=== PATIENT | female | born 1970 | race Caucasian/White ===

== ENCOUNTER → 2020-12-25 | Outpatient (CLI) | payer OTHER ==
--- NOTE | 2020-12-26 23:26 | RAD ---
DATE: 12/25/2020 EXAM: MAMMO RAEANN SCREENING BILATERAL HISTORY: Screening. New baseline COMPARISON: None available. New baseline exam. This study was interpreted with the benefit of Computerized Aided Detection (CAD). Breast Density: HETERO The breast parenchyma is heterogenously dense, which could reduce sensitivity of mammography. Breast parenchyma level C. FINDINGS: There are small nodular densities in the upper outer right breast at approximately 2:00 3-4 centers posterior to the nipple. There is a small nodular density in the left breast at 2:30 3:00, 3 cm posterior to the nipple. There is a questionable area of architectural distortion in the left breast 7 to 8 cm posterior to the nipple along the posterior nipple line, seen on CC view. No suspicious calcifications in either breast. IMPRESSION: Bilateral nodular densities in the outer breasts. Asymmetry in the left breast with possible architectural distortion. Recommend spot compression views and possible ultrasound if needed. BI-RADS CATEGORY: 0 INCOMPLETE: NEEDS ADDITIONAL IMAGING EVALUATION AND/OR PRIOR MAMMOGRAMS FOR COMPARISON. RECOMMENDED FOLLOW-UP: ADD ADDITIONAL IMAGING PQRS compliance statement: Patient information was entered into a reminder system with a target due date for the next mammogram. Mammography is a sensitive method for finding small breast cancers, but it does not detect them all and is not a substitute for careful clinical examination. A negative mammogram does not negate a clinically suspicious finding and should not result in delay in biopsying a clinically suspicious abnormality. "Our facility is accredited by the [employer] Mammography [employer]."
== END ==
LOC: MAMMO 14:24
PROVIDERS: ATTEND Obstetrics & Gynecology
DX: Z12.31 Encounter for screening mammogram for malignant neoplasm of breast (principal); N63.11 Unspecified lump in the right breast, upper outer quadrant; N63.21 Unspecified lump in the left breast, upper outer quadrant
CPT/HCPCS: 77063; 77067

== ENCOUNTER → 2021-01-07 | Outpatient (CLI) | payer OTHER ==
--- NOTE | 2021-01-07 14:48 | RAD ---
EXAM: Bilateral diagnostic mammogram; bilateral breast sonogram. HISTORY: 50-year-old female presents for evaluation of nodularity and asymmetry within both breasts d emonstrated on a screening mammogram dated 12/25/2020. TECHNIQUE: Full-field digital and spot compression views of both breasts are obtained. Sonographic im aging of both breasts targeted to sites of mammographic concern was also performed. COMPARISON: 12/25/2020 BREAST PARENCHYMAL DENSITY: Level C - Heterogeneously dense. FINDINGS: There is no persistent finding of concern with additional mammographic views. The areas of asymmetry and nodularity and possible architectural distortion appear to resolve with spot compressio n. Sonographic imaging of the right breast demonstrates multiple simple appearing cysts, the largest of which measures 6 mm at the 9:00 position 2 cm from the nipple and at the 9:00 position 3 cm from the nipple. There are ectatic ducts within the subareolar aspect of the right breast. Sonographic imaging of the left breast demonstrates multiple simple appearing cysts, the largest of w hich measure 9 mm 12:00 position and 9 mm at 3:00 position 2 cm from the nipple. There are mildly ect atic ducts within the retroareolar left breast. There is a benign-appearing left axillary lymph node. IMPRESSION: 1. No convincing suspicious persistent mammographic finding. 2. Multilevel small benign simple appearing cysts within both breasts and mild benign anterior breast ductal dilatation. 3. BI-RADS Category 2: Benign finding(s). RECOMMENDATION: Annual mammography is recommended. If your mammogram demonstrates that you have dense breast tissue, which could hide abnormalities, and if you have other risk factors for breast cancer that have been identified, you might benefit from s upplemental screening tests that may be suggested by your ordering physician. Dense breast tissue, i n and of itself, is a relatively common condition. This information is not provided to cause undue c oncern, but rather to raise your awareness and to promote discussion with your physician regarding th e presence of other risk factors, in addition to dense breast tissue. A report of your mammography re sults will be sent to you and your physician. You should contact your physician if you have any ques tions or concerns regarding this report. Mammography is a sensitive method for finding small breast cancers, but it does not detect them all a nd is not a substitute for careful clinical examination. A negative mammogram does not negate a clin ically suspicious finding and should not result in delay in biopsying a clinically suspicious abnorma lity. PQRS compliance statement - Patient information was entered into a reminder system with a target due date for the next mammogram. "Our facility is accredited by the [employer] Mammography [employer]." Electronically signed by: Paulina Garcia MD (01/07/2021 2:46 PM) [id number]
== END ==
LOC: MAMMO 12:46
PROVIDERS: ATTEND Obstetrics & Gynecology
DX: N60.01 Solitary cyst of right breast (principal); N60.02 Solitary cyst of left breast; N60.42 Mammary duct ectasia of left breast; N60.41 Mammary duct ectasia of right breast
CPT/HCPCS: 76641; 77066